=== PATIENT | male | born 1955 | race Caucasian/White ===

== ENCOUNTER → 2024-02-20 | Outpatient (BNVA) | payer MEDICARE, SELFPAY | END | disposition home or self-care (01) | PROVIDERS: PCP Family Medicine; Referring Provider Family Medicine; Visit Provider Urology | DX: N40.1 Benign prostatic hyperplasia with lower urinary tract symptoms (principal); N13.8 Other obstructive and reflux uropathy; Z80.42 Family history of malignant neoplasm of prostate; C67.9 Malignant neoplasm of bladder, unspecified; F17.210 Nicotine dependence, cigarettes, uncomplicated; E78.00 Pure hypercholesterolemia, unspecified; E03.9 Hypothyroidism, unspecified | CPT/HCPCS: 81003; 99212; G0463 ==

== ENCOUNTER → 2024-02-23 | Outpatient (CLI) | payer MEDICARE, SELFPAY ==
[2024-02-23 09:58] LABS: Anion Gap 7 (7-16); BUN/Creatinine Ratio 10 Ratio (12-20); Blood Urea Nitrogen 10 mg/dL (9-23); Calcium 9.9 mg/dL (8.3-10.6); Carbon Dioxide 26.2 mMol/L (20.0-31.0); Chloride 105 mMol/L (98-107); Glucose 98 mg/dL (74-106); Osmolality,Calculated 274 (275-295); Potassium 4.2 mMol/L (3.4-5.1); Sodium 138 mMol/L (136-145); eGFR > 60 See Note
== END | disposition home or self-care (01) ==
LOC: COPL 08:39
PROVIDERS: PCP Family Medicine; Referring Provider Urology; Visit Provider Urology
DX: C67.9 Malignant neoplasm of bladder, unspecified (principal)
CPT/HCPCS: 36415; 80048

== ENCOUNTER → 2024-03-12 | Outpatient (CLI) | payer MEDICARE, SELFPAY ==
--- NOTE | 2024-03-12 13:30 | XR_ITS ---
Examination: CT abdomen with intravenous contrast CT pelvis with intravenous contrast 2-D coronal reconstructions 2-D sagittal reconstructions Date and time of exam:March 12, 2024 1352 hours INDICATIONS: Diagnosis malignant neoplasm of the urinary bladder post surgery a few months ago, restaging, painful urination months. CTDI: vol (mGy) 11.75 DLP: (mGycm) 683 Technique: Multiple axial sections of the abdomen and pelvis have been obtained. 64 slice high-resolution scanner used. 3 mm axial sections have been obtained, post intravenous injection 60 cc [id number] 2-D sagittal, coronal reconstructions obtained. Low dose protocols were performed. One or more of the following dose reduction techniques were used; automated exposure control, adjustment of the mA and/or KV according to patient size, use of iterative reconstruction technique. 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
== END | disposition home or self-care (01) ==
LOC: SCAT 13:21
PROVIDERS: PCP Advanced Practice Midwife; Referring Provider Urology; Visit Provider Urology
DX: R91.8 Other nonspecific abnormal finding of lung field (principal); N32.89 Other specified disorders of bladder; C67.9 Malignant neoplasm of bladder, unspecified
CPT/HCPCS: 74177; A4649; Q9967

== ENCOUNTER → 2024-03-16 | Outpatient (BNVA) | payer MEDICARE, SELFPAY | END | disposition home or self-care (01) | PROVIDERS: PCP Family Medicine; Referring Provider Family Medicine; Visit Provider Urology | DX: N40.1 Benign prostatic hyperplasia with lower urinary tract symptoms (principal); N13.8 Other obstructive and reflux uropathy; C67.9 Malignant neoplasm of bladder, unspecified; Z80.42 Family history of malignant neoplasm of prostate; J44.9 Chronic obstructive pulmonary disease, unspecified; F17.210 Nicotine dependence, cigarettes, uncomplicated; E78.00 Pure hypercholesterolemia, unspecified; E03.9 Hypothyroidism, unspecified | CPT/HCPCS: 81003; 99212; G0463 ==

== ENCOUNTER → 2024-11-26 | Outpatient (CLI) | payer MEDICARE, SELFPAY ==
[2024-11-26 09:29] LABS: Prostate Specific Antigen 0.71 ng/mL (0-4.00)
== END | disposition home or self-care (01) ==
PROVIDERS: PCP Family Medicine; Referring Provider Urology; Visit Provider Urology
DX: N40.1 Benign prostatic hyperplasia with lower urinary tract symptoms (principal)
CPT/HCPCS: 36415; 84153

== ENCOUNTER → 2024-11-30 | Outpatient (BNVA) | payer MEDICARE, SELFPAY | END | disposition home or self-care (01) | PROVIDERS: PCP Family Medicine; Referring Provider Family Medicine; Visit Provider Physician Assistant | DX: C67.9 Malignant neoplasm of bladder, unspecified (principal); N40.1 Benign prostatic hyperplasia with lower urinary tract symptoms; Z80.42 Family history of malignant neoplasm of prostate; E78.00 Pure hypercholesterolemia, unspecified; E03.9 Hypothyroidism, unspecified; F17.210 Nicotine dependence, cigarettes, uncomplicated | CPT/HCPCS: 99212; 99213; Q3014; G0463 ==

== ENCOUNTER → 2024-12-17 | Outpatient (BNVA) | payer MEDICARE, SELFPAY | END | disposition home or self-care (01) | PROVIDERS: PCP Family Medicine; Referring Provider Family Medicine; Visit Provider Urology | DX: N32.89 Other specified disorders of bladder (principal); N32.3 Diverticulum of bladder; N40.1 Benign prostatic hyperplasia with lower urinary tract symptoms; N13.8 Other obstructive and reflux uropathy; C67.9 Malignant neoplasm of bladder, unspecified; E78.00 Pure hypercholesterolemia, unspecified; E03.9 Hypothyroidism, unspecified; F17.210 Nicotine dependence, cigarettes, uncomplicated; Z71.6 Tobacco abuse counseling | CPT/HCPCS: 52000; 81003; 96372; A4217; A4649; C1894; J1580; A9270 ==